=== PATIENT | female | born 1955 | race Caucasian/White ===

== ENCOUNTER 2024-05-07 06:22 | Inpatient (IN) | payer MEDICARE, OTHER ==
[~2024-05-07] VITALS: Ht 165.1 cm; Wt 86.2 kg
[2024-05-07] MEDS ORDERED: LIDOCAINE 2%-EPI 1:100,000 30 ML VIAL ONE (06:51)
[2024-05-07] MEDS ORDERED: dexaMETHasone SOD PHOSPHATE 2 ML ONE (06:51)
[2024-05-07] MEDS ORDERED: ANESTHESIA TRAY IN PYXIS 1 EA TRAY MC ONE (06:51)
[2024-05-07] MEDS ORDERED: VANCOMYCIN 1 GM VIAL ONE (06:51)
[2024-05-07] MEDS ORDERED: OXYMETAZOLINE HCL NASAL SPRAY 30 ML BOTTLE NS ONE (07:15)
[2024-05-07] MEDS ORDERED: ROCURONIUM BROMIDE 50 MG/5 ML ONE (09:31)
[2024-05-07] MEDS ORDERED: FENTANYL PF 250MCG/5ML AMPUL ONE (09:31)
[2024-05-07 11:05] VITALS: BP 130/77; TEMP 97.8; O2SAT 97
[2024-05-07] MEDS: IV NS 0.9% 1,000 ML IV PRN (11:23)
[2024-05-07] MEDS ORDERED: ACETAMINOPHEN 325 MG TABLET PO PRN (11:30)
[2024-05-07 12:00] VITALS: BP 121/76; TEMP 98.1; O2SAT 95
[2024-05-07] MEDS ORDERED: TRAM50TA2 PO (12:18)
[2024-05-07] MEDS ORDERED: ALBU18HF2 IH (12:18)
[2024-05-07] MEDS ORDERED: AMOX1TAB16 PO (12:18)
[2024-05-07] MEDS ORDERED: IBUP-1955 PO (12:18)
[2024-05-07] MEDS ORDERED: LEVO50TA PO (12:18)
[2024-05-07] MEDS: HYDROMORPHONE 1 MG/1 ML DISP.SYRIN IV PRN (13:09)
[2024-05-07] MEDS: ONDANSETRON HCL/PF 4 MG/2 ML VIAL IV PRN (13:14)
[2024-05-07 16:43] VITALS: BP 117/85; TEMP 97.9; O2SAT 96
[2024-05-07] MEDS: VANCOMYCIN 1 GM in IV D5W 250ml IV SCH (18:05)
[2024-05-07] MEDS ORDERED: diphenhydrAMINE HCL 50 MG CAPSULE PO PRN (19:30)
[2024-05-07] MEDS: predniSONE 20 MG TABLET PO ONE (19:47)
[2024-05-07 20:00] VITALS: BP 112/68; TEMP 97.4; O2SAT 96
[2024-05-08] MEDS: diphenhydrAMINE HCL 50 MG/ML VIAL IV ONE (06:08)
[2024-05-08 08:00] VITALS: BP 99/61; TEMP 97.7; O2SAT 96
[2024-05-08] MEDS: FAMOTIDINE (20 MG) 20 MG TABLET PO SCH (08:34)
== END 2024-05-08 13:00 | disposition home or self-care (01) | DRG 141 ==
LOC: DS 06:22 → MED 11:02
PROVIDERS: ADMIT Nurse Practitioner Acute Care; ATTEND Nurse Practitioner Acute Care
PROC: 0NSR04Z Reposition Maxilla with Internal Fixation Device, Open Approach (ICD-10-PCS; principal; 2024-05-07)
PROC: 0NUR07Z Supplement Maxilla with Autologous Tissue Substitute, Open Approach (ICD-10-PCS; 2024-05-07)
PROC: 0NUR0JZ Supplement Maxilla with Synthetic Substitute, Open Approach (ICD-10-PCS; 2024-05-07)
PROC: 0NBR0ZZ Excision of Maxilla, Open Approach (ICD-10-PCS; 2024-05-07)
PROC: 0WC40ZZ Extirpation of Matter from Upper Jaw, Open Approach (ICD-10-PCS; 2024-05-07)
DX: S02.40DA Maxillary fracture, left side, initial encounter for closed fracture (principal); T81.83XA Persistent postprocedural fistula, initial encounter; X58.XXXA Exposure to other specified factors, initial encounter; Y93.9 Activity, unspecified; M27.2 Inflammatory conditions of jaws; E03.9 Hypothyroidism, unspecified; Z82.3 Family history of stroke; Z87.891 Personal history of nicotine dependence; K44.9 Diaphragmatic hernia without obstruction or gangrene; I34.0 Nonrheumatic mitral (valve) insufficiency; Z98.890 Other specified postprocedural states; D16.4 Benign neoplasm of bones of skull and face; T18.0XXA Foreign body in mouth, initial encounter; Y92.009 Unspecified place in unspecified non-institutional (private) residence as the place of occurrence of the external cause; Z90.89 Acquired absence of other organs
CPT/HCPCS: 87081-TC; 87102-TC; A4223; C1713; G0378; J0690; J1100; J1170; J1200; J2405; J2704; J3010; J3370; J3490; J7030; J7060

== ENCOUNTER 2024-09-24 07:55 | Inpatient (IN) | payer MEDICARE, OTHER ==
[~2024-09-24] VITALS: Ht 165.1 cm; Wt 86.2 kg
[~2024-09-24 07:55] MED LIST: ALBU18HF2 IH; AMOX1TAB16 PO; IBUP-1955 PO; LEVO50TA PO; TRAM50TA2 PO
[2024-09-24] MEDS ORDERED: LIDOCAINE 2%-EPI 1:100,000 30 ML VIAL ONE (09:03)
[2024-09-24] MEDS ORDERED: VANCOMYCIN 1 GM VIAL ONE (09:03)
[2024-09-24] MEDS ORDERED: dexaMETHasone SOD PHOSPHATE 2 ML ONE (09:03)
[2024-09-24] MEDS ORDERED: ONDANSETRON HCL/PF 4 MG/2 ML VIAL IV PRN (11:30)
[2024-09-24] MEDS ORDERED: ACETAMINOPHEN 325 MG TABLET PO PRN ×2 (11:30→16:30)
[2024-09-24] MEDS: HYDROMORPHONE 1 MG/1 ML DISP.SYRIN IV PRN (11:36)
[2024-09-24] MEDS: IV NS 0.9% 1,000 ML IV PRN (11:59)
[2024-09-24 16:00] VITALS: BP 124/69; TEMP 97.5; O2SAT 94
[2024-09-24] MEDS ORDERED: ONDANSETRON HCL/PF 4 MG/2 ML VIAL IVP PRN (16:30)
[2024-09-24] MEDS: VANCOMYCIN 1 GM in IV D5W 250ml IV SCH (21:20)
[2024-09-25] MEDS ORDERED: ATOR10TA PO (07:36)
[2024-09-25 08:00] VITALS: BP 112/67; TEMP 97.7; O2SAT 94
== END 2024-09-25 10:30 | disposition home or self-care (01) | DRG 908 ==
LOC: DS 07:55 → MED 11:25
PROVIDERS: ADMIT Nurse Practitioner Acute Care; ATTEND Nurse Practitioner Acute Care
PROC: 0NPW04Z Removal of Internal Fixation Device from Facial Bone, Open Approach (ICD-10-PCS; principal; 2024-09-24)
PROC: 0N5R0ZZ Destruction of Maxilla, Open Approach (ICD-10-PCS; 2024-09-24)
PROC: 0NPW07Z Removal of Autologous Tissue Substitute from Facial Bone, Open Approach (ICD-10-PCS; 2024-09-24)
PROC: 0NUR07Z Supplement Maxilla with Autologous Tissue Substitute, Open Approach (ICD-10-PCS; 2024-09-24)
PROC: 0NSR04Z Reposition Maxilla with Internal Fixation Device, Open Approach (ICD-10-PCS; 2024-09-24)
DX: T86.831 Bone graft failure (principal); S02.40CK Maxillary fracture, right side, subsequent encounter for fracture with nonunion; T84.69XA Infection and inflammatory reaction due to internal fixation device of other site, initial encounter; S02.40DK Maxillary fracture, left side, subsequent encounter for fracture with nonunion; X58.XXXA Exposure to other specified factors, initial encounter; E03.9 Hypothyroidism, unspecified; E78.5 Hyperlipidemia, unspecified; I34.0 Nonrheumatic mitral (valve) insufficiency; K13.79 Other lesions of oral mucosa; T18.0XXA Foreign body in mouth, initial encounter; X58.XXXD Exposure to other specified factors, subsequent encounter; M27.2 Inflammatory conditions of jaws; D16.4 Benign neoplasm of bones of skull and face; Y83.2 Surgical operation with anastomosis, bypass or graft as the cause of abnormal reaction of the patient, or of later complication, without mention of misadventure at the time of the procedure; Y92.009 Unspecified place in unspecified non-institutional (private) residence as the place of occurrence of the external cause
CPT/HCPCS: 87081-TC; A4223; A4338; G0378; J0360; J0461; J0690; J1100; J1171; J2704; J3370; J3490; J7030; J7060

== ENCOUNTER 2025-01-28 08:54 | Inpatient (IN) | payer MEDICARE, OTHER ==
[~2025-01-28] VITALS: Ht 165.1 cm; Wt 54.0 kg
[~2025-01-28 08:54] MED LIST changes: -AMOX1TAB16 PO; +ATOR10TA PO; -TRAM50TA2 PO
[2025-01-28] MEDS ORDERED: LIDOCAINE 2%-EPI 1:100,000 30 ML VIAL ONE (11:39)
[2025-01-28] MEDS ORDERED: dexaMETHasone SOD PHOSPHATE 1 ML ONE ×2 (11:39)
[2025-01-28] MEDS ORDERED: VANCOMYCIN 1 GM VIAL ONE (11:39)
[2025-01-28] MEDS ORDERED: FENTANYL PF 100MCG/2ML AMPUL ONE (13:06)
[2025-01-28] MEDS ORDERED: ATOR10TA PO (13:55)
[2025-01-28] MEDS ORDERED: ONDANSETRON HCL/PF 4 MG/2 ML VIAL IV PRN (14:00)
[2025-01-28] MEDS ORDERED: ACETAMINOPHEN 325 MG TABLET PO PRN (14:00)
[2025-01-28] MEDS ORDERED: IV NS 0.9% 1,000 ML IV PRN (14:00)
[2025-01-28 20:00] VITALS: BP 113/63; TEMP 97.7; O2SAT 95
[2025-01-28] MEDS: HYDROMORPHONE 1 MG/1 ML DISP.SYRIN IV PRN (21:56)
[2025-01-28] MEDS: VANCOMYCIN 1 GM in IV D5W 250ml IV SCH (22:52)
[2025-01-29 08:00] VITALS: BP 99/72; TEMP 97.7; O2SAT 95
== END 2025-01-29 14:00 | disposition home or self-care (01) | DRG 908 ==
LOC: DS 08:54 → MED 13:45
PROC: 0NSR04Z Reposition Maxilla with Internal Fixation Device, Open Approach (ICD-10-PCS; 2025-01-28)
PROC: 0NUR07Z Supplement Maxilla with Autologous Tissue Substitute, Open Approach (ICD-10-PCS; 2025-01-28)
PROC: 0N5R0ZZ Destruction of Maxilla, Open Approach (ICD-10-PCS; 2025-01-28)
PROC: 0NPW04Z Removal of Internal Fixation Device from Facial Bone, Open Approach (ICD-10-PCS; principal; 2025-01-28 13:00)
DX: T86.831 Bone graft failure (principal); S02.40CK Maxillary fracture, right side, subsequent encounter for fracture with nonunion; S02.40DK Maxillary fracture, left side, subsequent encounter for fracture with nonunion; T84.69XA Infection and inflammatory reaction due to internal fixation device of other site, initial encounter; Y83.8 Other surgical procedures as the cause of abnormal reaction of the patient, or of later complication, without mention of misadventure at the time of the procedure; E78.5 Hyperlipidemia, unspecified; E03.9 Hypothyroidism, unspecified; I34.0 Nonrheumatic mitral (valve) insufficiency; Z98.890 Other specified postprocedural states; Z90.89 Acquired absence of other organs; M27.2 Inflammatory conditions of jaws; X58.XXXD Exposure to other specified factors, subsequent encounter; Y92.009 Unspecified place in unspecified non-institutional (private) residence as the place of occurrence of the external cause; K13.79 Other lesions of oral mucosa; Y83.2 Surgical operation with anastomosis, bypass or graft as the cause of abnormal reaction of the patient, or of later complication, without mention of misadventure at the time of the procedure
CPT/HCPCS: 88300-TC; 88305-TC; 88311-TC; 88312-TC; A4223; A4338; G0378; J0360; J0690; J1100; J1171; J2704; J3010; J3370; J3490; J7030; J7060